=== PATIENT | female | born 1980 | race Two or more races ===

== ENCOUNTER 2020-09-03 05:14 | Day surgery (SDC) | payer BC ==
[~2020-09-03] VITALS: Ht 152.4 cm; Wt 64.9 kg
[2020-09-03] VITALS (14 sets, daily range): BP systolic 120–133; BP diastolic 76–95
[2020-09-03] MEDS ORDERED: ceFAZolin sod 1 GM in NS 55 ML IVPB ONE (05:15)
[2020-09-03] MEDS ORDERED: fentaNYL 100 mcg/2 mL IV ONE (07:02)
[2020-09-03] MEDS ORDERED: Midazolam 2mg/2ml Inj ONE (07:02)
[2020-09-03] MEDS ORDERED: cefOXitin 1gm Inj ONE (07:08)
[2020-09-03] MEDS ORDERED: NS Irrig 3000ml IRRIG ONE ×2 (07:12→07:55)
[2020-09-03] MEDS ORDERED: Lidocaine 1% MPF 10mg/ml 5ml ONE (07:13)
--- NOTE | 2020-09-03 07:23 | Anethesia Preoperative Eval ---
Anesthesia Pre-op PMH/ROS General Date of Evaluation: Sep 03, 2020 Time of Evaluation: 07:20 Anesthesiologist: Rodney ASA Score: ASA 2 Mallampati Score Class I : Soft palate, uvula, fauces, pillars visible Class II: Soft palate, uvula, fauces visible Class III: Soft palate, base of uvula visible Class IV: Only hard plate visible Mallampati Classification: Class II Surgeon: Preiz Diagnosis: Menorhagia Surgical Procedure: Endometrial ablasion Anesthesia History: none Family History: no anesthesia problems Allergies: Coded Allergies: No Known Allergies (Unverified , 09/01/20) Medications: see eMAR Patient NPO?: Yes Past Medical History Cardiovascular: Denies: HTN, CAD, CO, valve dz, arrhythmia, other Gastrointestinal/Genitourinary: Reports: GERD - mild; Denies: CRI, ESRD, other Neurologic/Psychiatric: Denies: dementia, CVA, depression/anxiety, TIA, other Endocrine: Denies: DM, hypothyroidism, steroids, other HEENT: Denies: cataract (L), cataract (R), glaucoma, [place] (L), [place] (R), other Hematology/Immune: Reports: anemia - mild; Denies: DVT, bleeding disorder, other Musculoskeletal/Integumentary: Denies: OA, RA, DJD, DDD, edema, other PMH Narrative: as above PSxH Narrative: Breast augmentation Anesthesia Pre-op Phys. Exam Physician Exam Last Vital Signs Date Time Temp Pulse Resp B/P (MAP) Pulse Ox O2 Delivery O2 Flow Rate FiO2 09/03/20 05:41 96.9 87 18 131/78 100 Room Air Constitutional: NAD Neurologic: CN 2-12 intact Cardiovascular: RRR, no M/R/G Respiratory: CTA Gastrointestinal: S/NT/ND Airway Exam Mallampati Score: Class II MO: full Neck: flexble ROM: full Teeth: intact Dentures: no upper, no lower Anesthesia Pre-op A/P Labs see chart Urine Test Test 09/03/20 05:20 Urine HCG, Qualitative Negative (NEGATIVE) Studies Pre-op Studies: EKG - SR Risk Assessment & Plan Assessment: ASA 2 Plan: GA with LMA Status Change Before Surgery: No Pre-Antibiotics Drug: Cefoxitin !gr Given Within 1 Hr of Incision: Yes Time Given: 08:10 Shlomo Stevens MD Sep 03, 2020 07:23
[2020-09-03] MEDS ORDERED: Ketorolac 30mg Inj IV PRN (07:30)
[2020-09-03] MEDS ORDERED: LR 1000ml ONE (07:30)
[2020-09-03] MEDS ORDERED: LR 1000ml 1,000 ML IVLG SCH (07:30)
[2020-09-03] MEDS ORDERED: DiphenhydrAMINE 50mg/ml Inj IVP PRN ×2 (07:30→07:45)
[2020-09-03] MEDS ORDERED: Metoclopramide 10mg/2ml Inj IVP PRN ×2 (07:30→07:45)
[2020-09-03] MEDS ORDERED: Meperidine 25mg/1ml Inj (FOR RIGORS ONLY) IV PRN (07:30)
[2020-09-03] MEDS ORDERED: Sterile Water Irrig 1000ml IRRIG ONE (07:30)
--- NOTE | 2020-09-03 07:37 | Pre-Procedure Note/Attestation ---
Pre-Procedure Note/Attestation Complete Prior to Procedure Planned Procedure: not applicable Indications for Procedure Pre-Operative Diagnosis: Hysteroscopy Dilation and Curettage HTA ablation Attestation I attest that I discussed the nature of the procedure; its benefits; risks and complications; and alternatives (and the risks and benefits of such alternatives), prior to the procedure, with the patient (or the patient's legal guest relations representative). I attest that, if there was a reasonable possibility of needing a blood transfusion, the patient (or the patient's legal guest relations representative) was given the [facility] standardized written summary, pursuant to the Derrick Pilar Blood Safety Act ([place] Health and Safety Code # 1645, as amended). I attest that I re-evaluated the patient just prior to the surgery and that there has been no change in the patient's H&P, except as documented below: Carolynn Rodriguez MD Sep 03, 2020 07:37
[2020-09-03] MEDS ORDERED: HYDROcodone/Acetamin 5/325 tab ORAL PRN (07:45)
[2020-09-03] MEDS ORDERED: Tylenol #3 tab (300mg/30mg) ORAL PRN (07:45)
[2020-09-03] MEDS ORDERED: HYDROmorphone 1mg/ml Carpuject SUBQ PRN (07:45)
[2020-09-03] MEDS ORDERED: NS Irrig 1000ml IRRIG ONE ×2 (07:55→08:45)
[2020-09-03] MEDS ORDERED: Ketorolac 30mg Inj ONE (08:00)
--- NOTE | 2020-09-03 08:39 | Brief Operative Note ---
Immediate Post Operative Note Operative Note Pre-op Diagnosis: excessive menses, regular Procedure: hysteroscopy dilation and curettage HTA ablation Post-op Diagnosis: excessive and heavy menses, regular Surgeon: jaziel Rodriguez MD Anesthesiologist: Rich Anesthesia: general Specimen: yes Complications: none Condition: stable Fluids: crystalloid Estimated Blood Loss: minimal Drains: none Implant(s) used?: No Carolynn Rodriguez MD Sep 03, 2020 08:39
--- NOTE | 2020-09-03 08:48 | Immediate Post-Op Evaluation ---
Immediate Post-Op Evalulation Immediate Post-Op Evalulation Procedure: D&C Hysteroscopy,endomeyrial ablasion Date of Evaluation: Sep 03, 2020 Time of Evaluation: 08:47 IV Fluids: 800 Blood Products: none Estimated Blood Loss: min Urinary Output: none Blood Pressure Systolic: 126 Blood Pressure Diastolic: 72 Pulse Rate: 80 Respiratory Rate: 18 O2 Sat by Pulse Oximetry: 99 Temperature (Fahrenheit): 97.8 Pain Score (1-10): 1 Nausea: No Vomiting: No Complications none Patient Status: reacts, patent, none Hydration Status: adequate Shlomo Stevens MD Sep 03, 2020 08:47
--- NOTE | 2020-09-03 11:18 | 48 Hour Post Anesthesia Eval ---
Post Anesthesia Evaluation Procedure: D&C Hysteroscopy,endomeyrial ablasion Date of Evaluation: Sep 03, 2020 Time of Evaluation: 11:17 Blood Pressure Systolic: 127 0: 72 Pulse Rate: 68 Respiratory Rate: 20 Temperature (Fahrenheit): 97.6 O2 Sat by Pulse Oximetry: 98 Airway: patent Nausea: No Vomiting: No Pain Intensity: 1 Hydration Status: adequate Cardiopulmonary Status: stable Mental Status/LOC: patient returned to baseline Follow-up Care/Observations: n/a Post-Anesthesia Complications: none Follow-up care needed: ready to discharge Shlomo Stevens MD Sep 03, 2020 11:18
--- NOTE | 2020-09-03 11:44 | Operative Note - Dictated ---
DATE OF OPERATION: 09/03/2020 PREOPERATIVE DIAGNOSIS: Heavy regular periods. POSTOPERATIVE DIAGNOSIS: Heavy regular periods. PROCEDURE: Hysteroscopy, D and C, hydrothermal ablation. ANESTHESIA: General endotracheal. SURGEON: Carolynn Rodriguez MD. ANESTHESIOLOGIST: Shlomo Stevens MD. ESTIMATED BLOOD LOSS: Minimal. IV FLUIDS: Crystalloid. PROCEDURE IN DETAIL: After ensuring informed consent, the patient was taken to the operating room where general anesthesia was induced. The patient was sterilely prepped and draped. Weighted speculum was placed in the vagina. Cervix was easily dilated to a 6 Hegar dilator. Hysteroscope was placed inside the uterine cavity. Uterine cavity was distended with normal saline. There were no polyps or masses observed. Fractional curettage was performed. Next, hydrothermal ablation machine was initialized and allowed to equilibrate. Next, diagnostic hysteroscopy with the hydrothermal ablation machine was initiated with same findings as above. Next, hydrothermal ablation was initiated and the uterine cavity was heated to 90 degrees Celsius for 10 minutes without any leaks. After 2-minute cool down period, hysteroscopy was resumed, again normal post ablation uterine cavity was observed. Hysteroscope was removed. All laps and instruments were removed from the vagina. At the end of the procedure, the patient was awakened, stable, and transferred to the recovery area. All lap and instrument counts were correct x2. Carolynn Rodriguez M.D. DR: GAYATRI JOB#: [id number] CC:
[2020-09-03] MEDS ORDERED: D5 1/2NS 1,000 ML IV SCH (13:00)
== END 2020-09-03 11:50 | disposition home or self-care (01) ==
LOC: SUR 05:14
DX: N92.0 Excessive and frequent menstruation with regular cycle (principal); K21.9 Gastro-esophageal reflux disease without esophagitis; D64.9 Anemia, unspecified
CPT/HCPCS: 58563; 81025; 94003; J0694; J1885; J2250; J2405; J2704; J2765; J3010; J7120; 94150; J2180